=== PATIENT | male | born 1990 | race African-American/Black ===

== ENCOUNTER 2016-12-06 19:26 | Emergency (ER) | payer OTHER ==
[~2016-12-06] VITALS: Ht 172.7 cm; Wt 65.8 kg
[2016-12-06 19:38] VITALS: BP 111/85
[2016-12-06] MEDS ORDERED: TETRACAINE HCL/PF 0.5% UD 2 ML BOTTLE ONE (19:49)
[2016-12-06] MEDS ORDERED: FLUORESCEIN SODIUM OPHTH 1 EA STRIP ONE (19:49)
[2016-12-06] MEDS ORDERED: TETRACAINE HCL/PF 0.5% UD 2 ML BOTTLE OP ONE (20:00)
[2016-12-06] MEDS ORDERED: FLUORESCEIN SODIUM OPHTH 1 EA STRIP OP ONE (20:00)
== END 2016-12-06 20:31 | disposition home or self-care (01) ==
LOC: ER 19:32
DX: H57.11 Ocular pain, right eye (principal); Z88.0 Allergy status to penicillin
CPT/HCPCS: 99283; A4606; Z7610